=== PATIENT | female | born 1985 | race Caucasian/White ===

== ENCOUNTER 2019-07-15 05:36 | Inpatient (IN) | payer OTHER ==
[~2019-07-15] VITALS: Ht 172.7 cm; Wt 93.8 kg
[2019-07-15] VITALS (34 sets, daily range): BP systolic 94–137; BP diastolic 51–91
[2019-07-15] MEDS ORDERED: PRENTAB77 PO (06:19)
[2019-07-15] MEDS ORDERED: SYNT125T PO (06:19)
[2019-07-15] MEDS ORDERED: LR 1,000 ML IV SCH ×3 (06:30→09:00)
[2019-07-15] MEDS ORDERED: LR 1,000 ML IV ONE (06:30)
[2019-07-15 06:59] LABS: HEMATOCRIT 32.9 % (36.0-47.0); HEMOGLOBIN 10.9 g/dl (12.0-15.5); MEAN CORPUSCULAR HEMOGLOBIN 31.3 pg (27.0-33.0); MEAN CORPUSCULAR HGB CONC 33.1 g/dl (32.0-36.5); MEAN CORPUSCULAR VOLUME 94.5 fl (80.0-96.0); PLATELET COUNT, AUTOMATED 286 10^3/uL (150-450); RED BLOOD COUNT 3.48 10^6/uL (4.00-5.40); WHITE BLOOD COUNT 9.1 10^3/uL (4.0-10.0)
[2019-07-15] MEDS ORDERED: OXYTOCIN DRIP 30 UNITS in IV 1 EA IV SCH ×2 (09:00→14:12)
--- NOTE | 2019-07-15 10:36 | HPEPDOC ---
Obstetrical History & Physical General Date of Admission Jul 15, 2019 at 05:36 History of Present Illness 33 yo at 39+1 weeks presents to L&D today for scheduled IOL due to a history of precipitous deliveries. María Elena reports feeling well today and has no complaints. She denies any contractions, bleeding, or leakage of fluid. She endorses excellent movement. 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 LSIL pap --> colpo Past Medical History Past Obstetrical History : Past Obstetrical History: Multigravida (three term SVDs, most recently 2017 after precipitious labor) BUSINESS DEVELOPMENT SPECIALIST History: Abnormal Pap (LSIL pap when --> plan for colpo p ostpartum) Past Medical History Medical History 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 Surgical History: [place] teeth Family History Significant Family History: No pertinent family hx Family History Non contributory Social History Marital Status: Family situation: Spouse/partner home Psychosocial History: No pertinent psych hx * Smoker: non-smoker Alcohol: Denies Drugs: denies Imunizations Tdap status: current Influenza Status: current Allergies Coded Allergies: No Known Allergies (Unverified , 07/15/19) Medications Scheduled Pnv,Calcium 72/Iron/Folic Acid ( Plus Tablet) 1 Each Tablet, 1 TAB PO DAILY Miscellaneous Medications Levothyroxine Sodium (Synthroid) 125 Mcg Tablet, 125 MCG PO Physical Examination Physical Examination GENERAL: Alert and oriented times three. ABDOMEN: Gravid and non-tender to touch. FETUS: Is vertex (VTX) by sterile vaginal examination (SVE) EXTREMITIES: No edema. Laboratory Data 24H LABS Laboratory Tests 2 07/15/19 06:43: Nucleated Red Blood Cells % (auto) 0.0 CBC/BMP Laboratory Tests 07/15/19 06:43 Urine Culture: No Growth Pertinent Laboratoy Data Blood Type: A- RBC Antibody Screen: Positive (Anti D from Rhogam administration) HIV: Negative Hepatitis B: Negative Hepatitis C: Unknown Rapid Plasma Reagin: Nonreactive Rubella: Immune Varicella: Immune Chlamydia/Gonorrhea: Negative Group B Streptococcus: Negative Quad Screen Test: Unknown Cystic Fibrosis: Unknown Glucose Tolerance Test: 108 Anatomy Ultrasound Placenta Location: Anterior Normal Anatomy: Yes Placenta Previa: No Vaginal Examination Dilation: 4 cm Effacement: 80% Station: -2 Cervical Consistency: Soft Cervical Position: Middle Presentation: Cephalic presentation Position: Vertex (occiput) Assessment Heart Rate (FHR): 130 Variability: Moderate Accelerations: Positive Decelerations: None Tocometer Contractions: Yes Frequency: irregular Strength: palpated as mild Assessment/Plan Assessment 33 yo at 39+1 weeks gestation today presents for scheduled IOL due to a history of precipitous labors and deliveries. Plan Admit to L&D for IOL. Apply IV fluids. GBS negative. Regular diet. Cervix favorable. Will start IOL with pitocin. Patient may have epidural if desired. Anticipate . DO DEJAN Galvan CHRISTOPHER J. DO Jul 15, 2019 10:36
[2019-07-15] MEDS ORDERED: FENTANYL 2MCG/ML ROPIVACAINE 0.2% IN 0.9% NACL 100ML IVBAG As Ordered ONE (11:19)
[2019-07-15] MEDS ORDERED: FENTANYL/ROPIVACAINE/NACL BAG 100 ML EPIDURAL SCH (11:40)
[2019-07-15] MEDS ORDERED: EPIDURAL/PCA KEYS XX PRN (11:40)
[2019-07-15] MEDS ORDERED: NALOXONE INJ 0.4 MG/1 ML VIAL (J2310) IV PRN (11:40)
[2019-07-15] MEDS ORDERED: LACTATED RINGER'S 1000 ML IV PRN (11:40)
[2019-07-15] MEDS ORDERED: ONDANSETRON 4MG/2ML VIAL (J2405) IV PRN (11:40)
[2019-07-15] MEDS ORDERED: diphenhydrAMINE INJ 50MG/ML VIAL (J1200) IV PRN (11:40)
[2019-07-15] MEDS ORDERED: ePHEDrine SULFATE 25 MG/5 ML(5MG/ML) SYRINGE IV PRN (11:40)
[2019-07-15] MEDS ORDERED: EPIDURAL COMMENT XX SCH (11:40)
[2019-07-15] MEDS ORDERED: REFRIGERATOR IV KEYS XX PRN (11:40)
--- NOTE | 2019-07-15 13:22 | IPNPDOC ---
Text Note Date of Service The patient was seen on 07/15/19. NOTE María Elena received an epidural and is more comfortable, though she feels some pelvic pressure. SROM, clear fluid, occurred at ~1300. Cervix: 8/C/0. Large amount of clear fluid draining from SROM. FHR Cat I, moderate variability and early decels. Pitocin at 4mU. María Elena is progressing well. Anticipate beginning of 2nd stage soon. DO Corey VS,Jason, I+O VS, Jason, I+O Laboratory Tests 07/15/19 06:43 Vital Signs Date Time Temp Pulse Resp B/P (MAP) Pulse Ox O2 Delivery O2 Flow Rate FiO2 07/15/19 10:11 84 16 102/57 (72) 07/15/19 05:55 97.7 MOLLY WYLIE DO Jul 15, 2019 13:22
[2019-07-15] MEDS ORDERED: MEASLES,MUMPS,RUBELLA VACCINE INJ (MMR-II) (90707) SC SCH (14:15)
[2019-07-15] MEDS ORDERED: RHOGAM 300 MCG (1500 IU) INJ (J2790) IM SCH (14:15)
[2019-07-15] MEDS ORDERED: PROMETHAZINE 25 MG TAB PO PRN (14:15)
[2019-07-15] MEDS ORDERED: DIBUCAINE 1% OINTMENT 30GM TOP PRN (14:15)
[2019-07-15] MEDS ORDERED: ACETAMINOPHEN 500 MG TAB PO PRN (14:15)
--- NOTE | 2019-07-15 14:22 | DNPDOC ---
[facility] Delivery Note Delivery Note DATE OF DELIVERY: 15Jul2019 at ~1350 PREDELIVERY DIAGNOSIS: 39+1 weeks gestation and IOL for history of precipitous labor and delivery POST DELIVERY DIAGNOSIS: Delivered. PROCEDURE: Spontaneous vaginal delivery MONOTYPE SETTER: Dr. Nicole ANESTHESIA: Epidural. ESTIMATED BLOOD LOSS: 300 mL. FINDINGS: 8 pound 6 ounce male infant, Score 8/9, nuchal cord times three. DELIVERY SUMMARY: Presented to room as María Elena felt a strong urge to push. Exam revealed fetus at +2 station. The bed was broken down and she was prepped for delivery. Over one set of pushes with excellent maternal effort her delivered. Presentation was EDWIGE with restitution to ROT. There was a right compound hand and triple nuchal cord that were delivered through and reduced manually. The left anterior shoulder delivered with gentle guidance followed easily by the remainder of the body. The infant was dried and stimulated on the field and cried vigorously. The was then placed on the maternal abdomen. The three vessel cord was then clamped and cut by the FOB after appropriate time delay and under my direction. Third stage was spontaneous and was productive of an intact placenta. The uterine fundus was firmed with massage and pitocin was administered IV bolus. Inspection of the vagina and perineum revealed a periurethral laceration and a first degree perineal laceration. These lacerations were repaired with 4-0 vicryl and 3-0 vicryl suture respectively. There was excellent cosmesis and hemostasis after the repair. Straight cath of the urethra/bladder confirmed a patent urethra and clear urine after the repair. The fundus was palpated again and was firm. Mother stable when I left the room. DO DEJAN Galvan CHRISTOPHER J. DO Jul 15, 2019 14:22
[2019-07-15] MEDS: IBUPROFEN 800 MG TAB PO PRN (18:00)
[2019-07-15] MEDS: DOCUSATE SODIUM 100 MG CAP PO PRN (23:49)
[2019-07-16] MEDS: IBUPROFEN 800 MG TAB PO PRN (01:40)
[2019-07-16 06:00] VITALS: BP 121/66
[2019-07-16] MEDS ORDERED: RHOGAM 300 MCG (1500 IU) INJ (J2790) IM SCH (06:00)
--- NOTE | 2019-07-16 07:19 | IPNPDOC ---
Progress Note Date of Service: Jul 16, 2019 Progress Note Ms. Dean is a 33 yo G4 now P4 who is PPD#1 s/p uncomplicated after being admitted for an IOL due to a history of precipitous vaginal deliveries. No acute events overnight. This morning María Elena feels well and has no complaints. She denies any significant pain, fevers/chills, SOB, chest pain, or dysuria. Lochia is minimal. SHe is tolerating a regular diet and voiding on her own. Vitals - VSS, afebrile, normotensive, non tachycardic General - AAOX3, sitting up in bed, pleasant and conversant, NAD Abdomen - Fundus firm at U-2. No fundal tenderness. Extremities - No edema UO - appropriate María Elena is doing well and is making an appropriate recovery. Plan to continue routine care. Discharge medications given. THey are izabela iting baby circumcision today. Likely discharge to home tomorrow. Molly Nicole DO VS, I&O, 24H, Fishbone Vital Signs/I&O Vital Signs Date Time Temp Pulse Resp B/P (MAP) Pulse Ox O2 Delivery O2 Flow Rate FiO2 07/16/19 06:00 98.7 97 16 121/66 (84) 97 Room Air I&O- Last 24 Hours up to 6 AM 07/16/19 06:00 Intake Total 2500 ml Output Total 1750 ml Balance 750 ml Laboratory Data 24H LABS Laboratory Tests 2 07/15/19 14:56: Serology Scanned Report Hepatitis B Testing MOLLY NICOLE DO Jul 16, 2019 07:19
[2019-07-16] MEDS: ACETAMINOPHEN TAB 650MG DOSE (2X325MG) PO PRN (07:45)
[2019-07-16] MEDS: PRENATAL VITAMINS CHEWABLE TABLET PO SCH (07:45)
[2019-07-16] MEDS: LEVOTHYROXINE 125MCG TABLET (0.125MG) PO SCH (08:50)
[2019-07-16] MEDS: IBUPROFEN 600 MG TAB PO PRN ×2 (12:00→18:47)
[2019-07-16 18:00] VITALS: BP 131/74
[2019-07-17] MEDS: ACETAMINOPHEN TAB 650MG DOSE (2X325MG) PO PRN (01:18)
[2019-07-17] MEDS: DOCUSATE SODIUM 100 MG CAP PO PRN (01:18)
[2019-07-17] MEDS: LEVOTHYROXINE 125MCG TABLET (0.125MG) PO SCH (06:12)
[2019-07-17 06:18] VITALS: BP 119/65
[2019-07-17] MEDS: PRENATAL VITAMINS CHEWABLE TABLET PO SCH (08:15)
[2019-07-17] MEDS ORDERED: IBUP80TA PO (08:16)
[2019-07-17] MEDS ORDERED: LEVO125T4 PO (08:16)
[2019-07-17] MEDS ORDERED: DIBU10OI TOP (08:16)
[2019-07-17] MEDS ORDERED: DOCU100C16 PO (08:16)
--- NOTE | 2019-07-17 16:39 | IPN ---
DATE: 07/16/2019 This patient requested circumcision of her male . After discussing the risks and benefits of circumcision, the medical and nonmedical indications, the penile block and aftercare, expressed understanding of the penile block, aftercare, signed the consent form. All questions were answered. A 20-minute discussion.
--- NOTE | 2019-07-17 18:18 | DSES ---
DATE OF ADMISSION: 07/15/2019 DATE OF DISCHARGE: 07/17/2019 This is a 33-year-old 4, now para 4, admitted for induction of labor because of history of precipitous delivery. She had an epidural in place. Delivered a live- male , 8 pounds 6 ounces, scores of 8 and 9 at one and five minutes, respectfully. On her second day we discussed phlebitis, cystitis, mastitis, metritis, cellulitis, diet, exercise pain management, perineal, breast, and wound care. On discharge, her blood pressure is 119/65, respirations are 18, pulse 85, temperature 97.3. Her hemoglobin is 10.9, hematocrit 32.9, and platelets are 286. Rest of the examination unremarkable. Normocephalic, atraumatic. Neck: Full range of motion. Pupils equal and reactive to light. Distal pulses symmetric. No evidence of deep vein thrombosis (DVT), pulmonary embolism (PE), or superficial biters. Chest is clear bilaterally to bases. No wheezes or rhonchi. No costovertebral angle (CVA) tenderness. Abdomen soft. Four-quadrant bowel sounds are noted. Perineum is healing. She did have a first-degree laceration. She has no history of nausea, vomiting, diarrhea, or constipation. No chest pain. No shortness of breath. No dyspnea on exertion. In summary, we have a term gestation, controlled induction of labor because of previous precipitous deliveries. Discharged improved. Followup 6 weeks , [facility]. Medications dispensed at [place].
== END 2019-07-17 12:50 | disposition home or self-care (01) | DRG 807 ==
LOC: M LDI 05:36 → M OBS 16:38
PROVIDERS: ADMIT Obstetrics & Gynecology; ATTEND Obstetrics & Gynecology
PROC: 10E0XZZ Delivery of Products of Conception, External Approach (ICD-10-PCS; principal; 2019-07-15)
PROC: 3E033VJ Introduction of Other Hormone into Peripheral Vein, Percutaneous Approach (ICD-10-PCS; 2019-07-15)
PROC: 0UQMXZZ Repair Vulva, External Approach (ICD-10-PCS; 2019-07-15)
PROC: 0HQ9XZZ Repair Perineum Skin, External Approach (ICD-10-PCS; 2019-07-15)
DX: O99.284 Endocrine, nutritional and metabolic diseases complicating childbirth (principal); Z37.0 Single live birth; E06.3 Autoimmune thyroiditis; Z3A.39 39 weeks gestation of pregnancy; O69.81X0 Labor and delivery complicated by cord around neck, without compression, not applicable or unspecified; O32.6XX0 Maternal care for compound presentation, not applicable or unspecified; O70.0 First degree perineal laceration during delivery; O71.82 Other specified trauma to perineum and vulva

== ENCOUNTER → 2021-01-27 | Outpatient (REF) | payer OTHER ==
[~2021-01-27] MED LIST: DIBU28OI2 TOP; DOCU100C16 PO; IBUP80TA PO; LEVO125T4 PO; PRENTAB77 PO; SYNT125T PO
== END ==
LOC: M LAB REF 13:50
PROVIDERS: ATTEND Physician Assistant
DX: L92.8 Other granulomatous disorders of the skin and subcutaneous tissue (principal)
CPT/HCPCS: 11102; 88305; G0463